=== PATIENT | female | born 1995 | race African-American/Black ===

== ENCOUNTER 2017-01-16 18:19 | Emergency (ER) | payer MEDICAID ==
--- NOTE | ~2017-01-16 | US84 ---
[id number] [facility] [address] [place], [place] [address] [id number] E MR#: [id number] Acc #: [id number] NAME: PRIYANKA HYATT : 1995 SEX: F STUDY DATE/TIME: 01/16/2017 20:00 UNIT: [facility] ROOM: STUDY DESCRIPTION: US LE Veins Complete Rick Stdy Attending Physician: Jas Deng Aprn Referring Physician: Primary Care Physician No Ordering Physician: Ed Saleem Barker M.D. Primary Care Physician: Primary Care Physician No MEDICAL IMAGING REPORT This report is preliminary unless electronic signature is present EXAM Lower extremity venous ultrasound bilateral, 01/16/2017 HISTORY Bilateral lower extremity pain since today. Swelling today. History of smoker. TECHNIQUE Venous ultrasound examination of both lower extremities was performed using grayscale, spectral Doppler and color flow Doppler imaging. FINDINGS The examination is negative. There is no evidence of deep venous thrombus from the groin to the lower calf bilaterally. Visualized greater saphenous veins are also patent. IMPRESSION Negative examination. No evidence of lower extremity deep venous thrombosis. Dictated by... Ian Saleh M.D. THIS IS AN ELECTRONICALLY VERIFIED REPORT Ian Saleh M.D. at 01/18/2017 8:06 PM NIA/mateo TD: 01/17/2017 05:21 JOB #: [id number] MEDICAL IMAGING REPORT Page 1 of 1 COPY
== END 2017-01-16 21:15 | disposition home or self-care (01) ==
LOC: CFTX 18:19
DX: M79.652 Pain in left thigh (principal); M79.651 Pain in right thigh; F17.210 Nicotine dependence, cigarettes, uncomplicated
CPT/HCPCS: 93970; 99284

== ENCOUNTER → 2017-02-02 13:00 | Emergency (ER) | payer MEDICAID | END | disposition home or self-care (01) | LOC: CFTX 13:00 | DX: K08.89 Other specified disorders of teeth and supporting structures (principal); G89.18 Other acute postprocedural pain; F17.210 Nicotine dependence, cigarettes, uncomplicated | CPT/HCPCS: 99282; J1885 ==

== ENCOUNTER 2017-02-05 12:47 | Emergency (ER) | payer MEDICAID | END 2017-02-05 13:09 | disposition home or self-care (01) | LOC: CED 12:47 | DX: G89.18 Other acute postprocedural pain (principal); K08.89 Other specified disorders of teeth and supporting structures; M19.90 Unspecified osteoarthritis, unspecified site; F17.200 Nicotine dependence, unspecified, uncomplicated | CPT/HCPCS: 99283 ==

== ENCOUNTER 2017-02-28 15:22 | Emergency (ER) | payer MEDICAID ==
--- NOTE | ~2017-02-28 | EKG ---
PATIENT: PRIYANKA HYATT UNIT #: [id number] Ventricular Rate: 58 BPM Atrial Rate: 58 BPM P-R Interval: 152 ms QRS Duration: 92 ms Q-T Interval: 412 ms QTC Calculation(Bezet): 404 ms P [place]: 57 degrees Calculated R [place]: 55 degrees Calculated T [place]: 70 degrees Diagnosis Line: Sinus bradycardia with sinus arrhythmia Diagnosis Line: Otherwise normal ECG Diagnosis Line: No previous ECGs available Diagnosis Line: Confirmed by SIERRA YU MD ([id number]) on 03/03/2017 Diagnosis Line: 3:59:16 PM INTERPRETING MD: AIMEE VASQUES
--- NOTE | ~2017-02-28 | CR72 ---
[facility] A Service of [facility] & [facility] RADIOLOGY TEXT RESULTS PATIENT: PRIYANKA HYATT LOCATION: [facility] : [birth year] UNIT #: [id number] AGE: [address]: Bryan Hicks DO SEX: F ORDER DR: [id number] [facility] [address] [place], [place] [address] [id number] E MR#: [id number] Acc #: [id number] NAME: PRIYANKA HYATT : 1995 SEX: F STUDY DATE/TIME: 02/28/2017 15:30 UNIT: [facility] ROOM: STUDY DESCRIPTION: CR Chest Single View Portable Attending Physician: Bryan Hicks D.O. Ordering Physician: Bryan Hicks D.O. Primary Care Physician: No Primary Care Physician MEDICAL IMAGING REPORT This report is preliminary unless electronic signature is present EXAM Frontal chest, 02/28/2017. INDICATION 22-year-old female with cough, chest pain, and abdominal pain since February 27. Tobacco abuse. TECHNIQUE Frontal chest compared to 09/09/2005. FINDINGS Reverse S-shaped scoliosis present to a mild degree. Cardiac silhouette within normal limits. Vascularity unremarkable. Lung volumes are low and there is bronchovascular crowding. Lungs are otherwise clear and there is no pneumothorax. IMPRESSION Low-volume image, otherwise negative chest. Dictated by... Edin Walton M.D. THIS IS AN ELECTRONICALLY VERIFIED REPORT Edin Walton M.D. at 02/28/2017 5:41 PM Janis TD: 02/28/2017 17:32 JOB #: [id number] MEDICAL IMAGING REPORT Page 1 of 1 COPY
[2017-02-28 15:25] LABS: BASOPHIL# 0.1 X10e3 (0-0.3); EOSINOPHIL# 0.2 X10e3 (0-0.7); EOSINOPHIL% 3.6 % (0.0-7.0); HEMATOCRIT 45.1 % (35.0-45.0); HEMOGLOBIN 14.8 gm/dL (12.0-16.0); LYMPHOCYTE# 1.6 X10e3 (1.0-3.5); LYMPHOCYTE% 29.1 % (17.0-45.0); MEAN CELL VOLUME 88.4 FL (83-96); MEAN CORPUSCULAR HGB CONC 32.8 g/dL (30-36); MEAN PLATELET VOLUME 7.6 FL (6.5-11.5); MONOCYTE# 0.6 X10e3 (0-1.0); MONOCYTE% 10.7 % (3.0-12.0); NEUTROPHIL% 55.6 % (40-75); PLATELET COUNT 194 X10e3 (140-420); RED BLOOD COUNT 5.11 X10e (3.90-5.30); RED CELL DISTRIBUTION WIDTH 14.1 % (11.0-15.5); WHITE BLOOD COUNT 5.3 X10e3 (4.0-10.5)
[2017-02-28 15:29] LABS: DIFF IND NO
[2017-02-28 15:40] LABS: PROTHROMBIN TIME (PATIENT) 10.5 SECONDS (9.6-11.5)
[2017-02-28 16:05] LABS: ALBUMIN SERUM 4.4 g/dL (3.5-5.0); BILIRUBIN, DIRECT 0.1 mg/dL (0.0-0.2); BILIRUBIN,INDIRECT 0.3 mg/dL (0.0-0.9); BILIRUBIN,TOTAL 0.4 mg/dL (0.2-2.0); BUN/CREATININE RATIO 16.66; CREATININE SERUM 0.6 mg/dL (0.6-1.4); POTASSIUM 3.6 mmol/L (3.5-5.1); PROTEIN TOTAL SERUM 7.5 g/dL (6.0-8.3)
[2017-02-28 16:33] LABS: POC - CKMB <1.0 ng/mL (0.0-7.9); POC - TROPONIN <0.05 ng/mL (<=0.05)
[2017-02-28 17:04] LABS: URINE SOURCE CLEAN CATCH
[2017-02-28 17:23] LABS: URINE APPEARANCE CLEAR; URINE BILIRUBIN NEG (NEG); URINE BLOOD 2+ (NEG); URINE COLOR YELLOW; URINE GLUCOSE NEG (NEG); URINE KETONE NEG (NEG); URINE LEUKOCYTE ESTERASE TRACE (NEG); URINE NITRATE NEG (NEG); URINE PH 8.5 (5-8); URINE PROTEIN NEG (NEG); URINE SPECIFIC GRAVITY 1.022 (1.003-1.035)
[2017-02-28 17:25] LABS: CULTURE INDICATED? YES; URINE BACTERIA AUWI 1+ (NEGATIVE); URINE SQUAMOUS EPITHELIAL CELL OCC /[HPF]
[2017-02-28 17:32] LABS: AMPHETAMINE NEG (NEG); BARBITURATES NEG (NEG); BENZODIAZEPINES NEG (NEG); COCAINE NEG (NEG); MARIJUANA POS (NEG); OPIATES NEG (NEG); TRICYCLIC ANTIDEPRESSANTS NEG (NEG); U METHADONE NEG (NEG)
[2017-02-28 17:44] LABS: POC - CKMB <1.0 ng/mL (0.0-7.9); POC - TROPONIN <0.05 ng/mL (<=0.05)
== END 2017-02-28 18:23 | disposition home or self-care (01) ==
LOC: CED 15:22
PROVIDERS: Emergency Medicine
DX: R07.89 Other chest pain (principal); F17.200 Nicotine dependence, unspecified, uncomplicated
CPT/HCPCS: 36415; 71010; 80048; 80076; 80307; 81003; 82553; 83690; 84484; 84703; 85025; 85379; 85610; 85730; 87086; 93005; 96374; 99284; J1885

== ENCOUNTER 2017-03-10 14:30 | Emergency (ER) | payer MEDICAID ==
--- NOTE | ~2017-03-10 | EKG ---
PATIENT: PRIYANKA HYATT UNIT #: [id number] Ventricular Rate: 99 BPM Atrial Rate: 99 BPM P-R Interval: 162 ms QRS Duration: 76 ms Q-T Interval: 342 ms QTC Calculation(Bezet): 438 ms P [place]: 63 degrees Calculated R [place]: 11 degrees Calculated T [place]: 44 degrees Diagnosis Line: Normal sinus rhythm Diagnosis Line: Normal ECG Diagnosis Line: When compared with ECG of 28-FEB-2017 14:58, Diagnosis Line: Vent. rate has increased BY 41 BPM Diagnosis Line: Confirmed by YUNG SIDDIQUI MD ([id number]) on Diagnosis Line: 03/11/2017 8:37:18 AM INTERPRETING MD: CHEN VASQUES
== END 2017-03-10 16:15 | disposition home or self-care (01) ==
LOC: CED 14:30
DX: R07.89 Other chest pain (principal); R06.02 Shortness of breath; F17.200 Nicotine dependence, unspecified, uncomplicated; J30.2 Other seasonal allergic rhinitis
CPT/HCPCS: 93005; 99283

== ENCOUNTER 2017-04-08 12:20 | Emergency (ER) | payer OTHER ==
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
== END 2017-04-08 14:25 | disposition home or self-care (01) ==
LOC: CED 12:20 → CFTX 12:20
DX: S13.4XXA Sprain of ligaments of cervical spine, initial encounter (principal); S40.021A Contusion of right upper arm, initial encounter; Y09 Assault by unspecified means; Y93.9 Activity, unspecified; Y92.410 Unspecified street and highway as the place of occurrence of the external cause
CPT/HCPCS: 72040; 72072; 73080; 99283

== ENCOUNTER 2017-05-31 00:12 | Emergency (ER) | payer OTHER ==
[~2017-05-31] VITALS: Ht 171.4 cm; Wt 69.4 kg
[2017-05-31 01:18] LABS: URINE APPEARANCE CLEAR; URINE BILIRUBIN NEG (NEG); URINE BLOOD NEG (NEG); URINE COLOR YELLOW; URINE GLUCOSE NEG (NEG); URINE KETONE TRACE (NEG); URINE LEUKOCYTE ESTERASE NEG (NEG); URINE NITRATE NEG (NEG); URINE PH 5.5 (5-8); URINE PROTEIN NEG (NEG); URINE SPECIFIC GRAVITY 1.025 (1.003-1.035); URINE UROBILINOGEN 0.2 MG/DL (NEG)
[2017-05-31 01:22] LABS: CULTURE INDICATED? NO
[2017-05-31 02:18] LABS: BUN/CREATININE RATIO 22.85; CREATININE SERUM 0.7 mg/dL (0.6-1.4); GLOM FILT RATE Estimated 143.5 mL/min (>60); POTASSIUM 4.2 mmol/L (3.5-5.1)
== END 2017-05-31 03:10 | disposition home or self-care (01) ==
LOC: CED 00:12
PROVIDERS: Nurse Practitioner Family
DX: R10.9 Unspecified abdominal pain (principal); F17.290 Nicotine dependence, other tobacco product, uncomplicated
CPT/HCPCS: 36415; 80048; 81003; 84703; 96372; 99284; J1885